=== PATIENT | male | born 1970 | race Two or more races ===

== ENCOUNTER 2016-12-18 09:46 | Emergency (ER) | payer OTHER ==
[2016-12-18 09:52] VITALS: BP 114/65; PULSE 54; RESP 16; TEMP 98.1; O2SAT 95
--- NOTE | 2016-12-18 10:44 | EDPHY ---
H & P Stated Complaint: REDDNESS AND DRAINAGE BOTH EYES FOR 2 DAYS Time Seen by Provider: 12/18/16 10:04 HPI/ROS: CHIEF COMPLAINT: Bilateral eyebrow Brian, itchiness, and discomfort HISTORY OF PRESENT ILLNESS: This is a 46-year-old male who reports a 2 day history of bilateral eye redness, itching S, discomfort, and some drainage. His eyes are matted closed in the morning. He denies visual changes. He does not have a foreign body sensation. He has had no eye trauma. No fever, headache, or earache. He did have a mild sore throat recently. REVIEW OF SYSTEMS: A ten point review of systems was performed and is negative with the exception of the items mentioned in the HPI. - Personal History Current Tetanus Diphtheria and Acellular Pertussis (TDAP): Yes Tetanus Vaccine Date: 2013 - Medical/Surgical History Hx Asthma: No Hx Chronic Respiratory Disease: No Hx Diabetes: No Hx Cardiac Disease: No Hx Renal Disease: No Hx Cirrhosis: No Hx Alcoholism: No Hx HIV/AIDS: No Hx Splenectomy or Spleen Trauma: No Other PMH: Denies - Social History Smoking Status: Never smoked Additional Social History: He is . He works at the [employer]. - Physical Exam Exam: General Appearance: Alert. Vital signs reviewed. Eyes: Visual Acuity: noted from Nurse's notes. Pupils:equal round and reactive to light EOMI Lids: no edema or swelling Skin: no proptosis, no periorbital erythema or swelling, no vesicles Conjunctivae: Mildly injected bilaterally, no discharge Cornea: Fluorescein exam not performed Anterior chamber:normal, no hyphema or hypopyon ENT, Mouth: Mucous membranes are moist, no oropharyngeal erythema or edema. Normal tympanic membranes. Neck: No lymphadenopathy, supple. Respiratory: Lungs are clear to auscultation; no wheezes, rales, or rhonchi. Cardiovascular: Regular rate and rhythm; no murmur, rub, or gallop. Skin: Warm and dry, no rashes on exposed skin, normal color. Neurological: Alert and oriented. Moving all four extremities easily and equally. Psychiatric: Normal affect. Constitutional: Initial Vital Signs Temperature (C) 36.7 C 12/18/16 09:50 Heart Rate 54 L 12/18/16 09:50 Respiratory Rate 16 12/18/16 09:50 Blood Pressure 114/65 12/18/16 09:50 O2 Sat (%) 95 12/18/16 09:50 O2 Delivery Mode Room Air Allergies/Adverse Reactions: No Known Allergies Allergy (Verified 12/18/16 09:53) Home Medications: Medication Instructions Recorded Sulfacetamide 10% [Bleph-10 10%] 1 drops EACHEYE Q4H #1 opht.btl 12/18/16 Medical Decision Making ED Course/Re-evaluation: Bilateral conjunctivitis in generally healthy 46-year-old male. Visual acuity within normal limits. The not suspect foreign body or corneal abrasion. Will treat with sulfacetamide eyedrops. Danger signs reviewed. Differential Diagnosis: I considered a differential diagnosis that includes but is not limited to bacterial or viral conjunctivitis, retained foreign body, corneal abrasion and iritis. Departure - Departure Disposition: Home, Routine, Self-Care Clinical Impression: Conjunctivitis Qualifiers: Conjunctivitis type: acute Acute conjunctivitis type: unspecified Laterality: bilateral Qualified Code(s): H10.33 - Unspecified acute conjunctivitis, bilateral Condition: Good Instructions: Conjunctivitis (ED) Additional Instructions: Adult Pain & Fever Control: We recommend Acetaminophen (Tylenol) and Ibuprofen (Motrin,Advil) for pain and fever control. When fever is high or pain severe, both drugs can be used at the same time, but at different intervals. Please note the time differences. Your dose is: Acetaminophen 650mg every 4 to 6 hours Ibuprofen 400mg every 8 hours with food OR Note: do not take Acetaminophen with Hydrocodone (Vicodin, Lortab) or Oycodone (Percocet). These medications also contain Acetaminophen. No more than 3000mg of Acetaminophen should be taken in 24 hours (for an adult). Referrals: DYLAN AZUL,. [Primary Care Provider] - As per Instructions Prescriptions: Sulfacetamide 10% [Bleph-10 10%] 1 drops EACHEYE Q4H #1 opht.btl Print Language: Irish
== END 2016-12-18 10:51 | disposition home or self-care (01) ==
LOC: CED 09:46
DX: H10.33 Unspecified acute conjunctivitis, bilateral (principal)